=== PATIENT | male | born 1945 | race Caucasian/White ===

== ENCOUNTER 2024-05-11 07:05 | Emergency (ER) | payer MEDICARE ==
[2024-05-11 07:16] LABS: BASOPHILS PERCENT AUTO 0.2 % (0.0-1.0); EOSINOPHILS PERCENT AUTO 1.6 % (1.0-3.0); HEMATOCRIT 36.4 % (40.0-54.0); HEMOGLOBIN 11.9 g/dL (14.0-18.0); LYMPHOCYTES PERCENT AUTO 14.2 % (20.5-50.1); MEAN CORPUSCULAR HEMOGLOBIN 31.1 pg (27.0-34.0); MEAN CORPUSCULAR HGB CONC 32.7 g/dL (33.0-35.0); MONOCYTES PERCENT AUTO 6.2 % (2-8); NEUTROPHILS PERCENT AUTO 77.8 % (42.2-75.2); PLATELET COUNT,PLT 172 10^3/uL (150-450); RED BLOOD CELL COUNT 3.83 10^6/uL (4.6-6.2); WHITE BLOOD CELL COUNT,WBC 15.3 10^3/uL (5.0-10.0)
[2024-05-11 07:23] LABS: O2 DELIVERY DEVICE NASAL CANNULA
[2024-05-11 07:29] LABS: BASE EXCESS VENOUS -2.9 mmol/l ((-2)-(+3)); BICARBONATE,VENOUS 25 mmol/l (19-25); O2 SATURATION VENOUS 51.8 % (60-80); PCO2 VENOUS 59 mmHg (41-51); PH,VENOUS 7.25 (7.31-7.41); PO2 VENOUS 37 mmHg (35-42)
[2024-05-11] MEDS: fentaNYL 100 MCG/2 ML SDV IVPUSH ONE (07:29)
[2024-05-11 07:34] LABS: PROTHROMBIN TIME 10.3 SEC (9.0-12.0); PTT,PARTIAL THROMBOPLSTIN TIME 20.3 SEC (22.0-34.0)
[2024-05-11] MEDS: Heparin Sodium 5,000 Units/ML Vial IVPUSH ONE (07:37)
[2024-05-11 07:38] LABS: ALBUMIN 3.3 g/dL (3.4-5.0); ANION GAP 14.9 mEq/L (7-13); BILIRUBIN TOTAL 0.7 mg/dL (0.2-1.0); BUN/CREATININE RATIO 14.8 (No establ ref range); CALCIUM 8.9 mg/dL (8.5-10.1); CREATININE 2.7 mg/dL (0.70-1.30); EST CRCL DRUG DOSING (CG) 22.4 mL/min; MAGNESIUM 2.3 mg/dL (1.8-2.4); POTASSIUM,K 2.9 mmol/L (3.5-5.1); PROTEIN TOTAL,TP 6.6 g/dL (6.4-8.2)
[2024-05-11] MEDS: Nitroglycerin/D5W 25 MG/250 ML BOTTLE IV SCH (07:38)
[2024-05-11] MEDS: Heparin Sodium/0.45% NaCl 25,000 UNITS/500 ML BAG IV SCH (07:40)
[2024-05-11] MEDS: Potassium Chloride 10 MEQ in Premix Bag 1 BAG IV ONE (08:00)
[2024-05-11] MEDS ORDERED: Sodium Chloride 0.9% 500 ML IV SCH (08:00)
[2024-05-11] MEDS: Morphine 2 MG/ML SYRINGE IVPUSH ONE (08:05)
== END 2024-05-11 08:10 ==
LOC: DL.ED 07:21
DX: I21.4 Non-ST elevation (NSTEMI) myocardial infarction (principal); J96.01 Acute respiratory failure with hypoxia; I24.9 Acute ischemic heart disease, unspecified; E87.6 Hypokalemia; I12.9 Hypertensive chronic kidney disease with stage 1 through stage 4 chronic kidney disease, or unspecified chronic kidney disease; N18.9 Chronic kidney disease, unspecified; I25.2 Old myocardial infarction; J44.9 Chronic obstructive pulmonary disease, unspecified; E78.00 Pure hypercholesterolemia, unspecified; Z79.82 Long term (current) use of aspirin; Z79.899 Other long term (current) drug therapy
CPT/HCPCS: 71045; 80053; 82803; 83690; 83735; 83880; 84484; 85025; 85379; 85610; 85730; 93005; 93010; 96365; 96368; 96375; 99285; J1644; J2270; J2305; J3010; J3480